=== PATIENT | female | born 1990 | race African-American/Black ===

== ENCOUNTER 2025-04-16 09:07 | Outpatient (REF) | payer OTHER, SELFPAY ==
--- OUTSIDE RECORDS SUMMARY | 2025-04-16 11:33 | XMS_ITS ---
Author Name [facility] Organization Unknown History of Medication Use Medication Directions Dispensed Refills Start Date End Date Stat us azithromycin (ZITHROMAX) 250 MG tablet Take 2 tablets (500 mg total) by mouth daily for 1 day, THEN 1 tablet (250 mg total) daily for 4 days. 02/07/2024 02/13/2024 active levonorgestrel-ethi nyl estradiol (AVIANE) 0.1-20 mg-mcg tablet TAKE 1 TABLET BY ORAL ROUTE ONCE DAILY 03/01/2022 active butalbital-acetamin ophen-caffeine (ESGIC) 50-325-40 mg tablet TAKE 2 TABLET BY MOUTH EVERY 6 HOURS NEEDED FOR PAIN,INSTR USE DURING MENSTRUAL CYCLE 09/06/2021 active erythromycin (ILOTYCIN) ophthalmic ointment Administer 1 application into the left eye 4 (four) times a day. 03/17/2018 active fluticasone (FloNASE) 50 mcg/spray nasal spray 1 spray into each nostril daily. 03/17/2018 active LARISSIA 0.1-20 MG-MCG per tablet TAKE 1 TABLET BY ORAL ROUTE ONCE DAILY 03/07/2018 active None recorded. (No additional sig information) completed butalbital-acetamin ophen-caffeine 50 mg-325 mg-40 mg tablet TAKE 2 TABLET BY MOUTH EVERY 6 HOURS NEEDED FOR PAIN,INSTR USE DURING MENSTRUAL CYCLE TAKE 2 TABLET BY MOUTH EVERY 6 HOURS NEEDED FOR PAIN,INSTR USE DURING MENSTRUAL CYCLE completed triamcinolone acetonide 0.1 % topical ointment APPLY A THIN LAYER TO THE AFFECTED AREA(S) BY TOPICAL ROUTE 2 TIMES PER DAY APPLY A THIN LAYER TO THE AFFECTED AREA(S) BY TOPICAL ROUTE 2 TIMES PER DAY completed Allergies Allergen Reaction Severity Comment Documented Date Source Statu s LATEX RASH[facility]MATITIS [facility] SHELLFISH ALLERGY ANAPHYLAXIS Severe 09/08/2018 [facility] active SHELLFISH CONTAINING PRODUCTS ANAPHYLAXIS 09/08/2018 [facility] active PENICILLINS ANAPHYLAXIS 03/17/2018 [facility] ac tive AMPICILLIN HIVES [facility] SHELLFISH DERIVED ANAPHYLAXIS [facility] Problems Problem Status Onset Date Problem Type Date of Resolution Source Acute pharyngitis, unspecified etiology active [facility] Streptococcal sore throat active [facility] Impacted cerumen of left ear active En[facility]DiagnosisAct [facility] Lump in left breast active 2020[facility]11-[facility] Immun[facility] Vaccine Date Source Lot Number Status COVID-19, mRNA, LNP-S, PF, 1 00 mcg/0.5 mL dose (Moderna) - ML 03/31/2021 [facility] [id number] completed COVID-19, mRNA, LNP-S, PF, 1 00 mcg/0.5 mL dose (Moderna) - ML 06/03/2020 [facility] [id number] completed COVID-19, mRNA, LNP-S, PF, 1 00 mcg/0.5 mL dose (Moderna) - ML 05/01/2020 [facility] [id number] completed Varicella 03[facility]26/[id number] completed MMR Single Dose Vial 09/08/2018 [facility] [id number] comp leted Menactra Single Dose Vial 07/13/2018 [facility] [id number] completed Fluarix Quadrivalent Prefilled Syringe 02/05/[address] [id number] completed Encounters Encounter Type Encounter Reason Primary Diagnosis Location Date Ambulatory 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 03/09/2025 Ambulatory Mouth or throat complaint Acute pharyngitis, unspecified [facility] 02/07/2024 Ambulatory [facility] 10/05/2022 Ambulatory Impacted cerumen , left ear [facility] 02/20/2022 Ambulatory [facility] 09/15/2021 Ambulatory [facility] 09/04/2021 Ambulatory Encounter for immunization [facility] 03/31/2021 Care Team Organization Name Specialty Phone Email Start Date End Da te [facility] 02/07/2024 [facility]HIJEET [facility] 02/20/202202/20 [facility] ABHIJEET L[facility] 02/20/2022 [facility] 09[facility]18/2021 [facility] 09/04/202109/15
[2025-04-16 13:15] LABS: MANUAL DIFF FLAG NO
[2025-04-16 13:17] LABS: Hematocrit 38.0 % (37.0-47.0); Hemoglobin 12.9 g/dl (12.0-16.0); Imm Gran Abs Auto 0.02 X10*3/uL (0.00-0.03); Imm Gran Pct Auto 0.4 % (0.0-0.4); Lymphocytes Absolute Auto 1.8 X10*3/uL (1.2-4.9); Mean Corpuscular HGB Conc 33.9 g/dl (31.0-35.0); Mean Corpuscular Hemoglobin 29.7 pg (27.0-33.0); Mean Corpuscular Volume 87.6 fL (80.0-98.0); NRBC Abs Auto 0.000 X10*3/uL (0.0-0.012); NRBC Pct Auto 0.0 /100WBC (0.0-0.2); Platelet Count 314 X10*3/uL (160-400); Red Blood Count 4.34 X10*6/uL (4.20-5.50); White Blood Count 4.7 X10*3/uL (4.8-10.8)
[2025-04-16 14:01] LABS: Potassium 4.3 mmol/L (3.3-5.1); Sodium 138 mmol/L (135-145)
[2025-04-16 14:02] LABS: Alanine Aminotransferase 11 U/L (0-31); Albumin Level 4.4 g/dL (3.5-5.0); Alkaline Phosphatase 43 U/L (39-117); Anion Gap 11 (12-20); Aspartate Amino Transferase 28 U/L (5-31); Blood Urea Nitrogen 10 mg/dL (9-16); Calcium 9.4 mg/dL (8.4-10.2); Carbon Dioxide 23 mmol/L (22-29); Chloride 108 mmol/L (96-108); Cholesterol 225 mg/dL (<200); Estimated Glomerular Filt Rate > 60; HDL Cholesterol 62 mg/dL (>40); Total Protein 7.6 g/dL (6.5-8.0); Triglycerides 58 mg/dL (<150)
== END 2025-04-16 09:08 | disposition home or self-care (01) ==
LOC: HO.10HDL 09:07
PROVIDERS: PCP Internal Medicine; Visit Provider Internal Medicine
DX: Z13.31 Encounter for screening for depression (principal); Z13.39 Encounter for screening examination for other mental health and behavioral disorders
CPT/HCPCS: 36415; 80053; 80061; 84443; 85025; 96127